=== PATIENT | female | born 1980 | race Caucasian/White ===

== ENCOUNTER 2022-05-08 09:33 | Day surgery (SDC) | payer OTHER, MEDICARE, SELFPAY ==
[2022-05-08] VITALS (15 sets, daily range): BP systolic 109–132; BP diastolic 72–85; PULSE 95–120; RESP 14–20; TEMP 36.1–36.6; O2SAT 96–100; BMI 42.0
--- NOTE | ~2022-05-08 | FL_ITS ---
EXAMINATION: XR FL WITH IMAGES CLINICAL INFORMATION: Perm-A-Cath. COMPARISON: None TECHNIQUE: Fluoroscopy performed by Soco Boogie MD. Fluoroscopy Time: 0 minutes. Cumulative Dose: 2.4 mGy. DAP: 0.7 Gycm2. Images: 3. FINDINGS: There is a right jugular Perm-A-Cath with tip projecting over the cavoatrial junction. FL/FL guidance in OR IMPRESSION: Fluoroscopic guidance for Perm-A-Cath placement.
[2022-05-08 10:02] LABS: UPreg QC Valid YES; Urine Pregnancy NEGATIVE (NEGATIVE)
[2022-05-08] MEDS: 0.9 % Sodium Chloride 1,000 ML 50 ML IVCONT (10:10)
[2022-05-08 10:18] LABS: Anion Gap 22 (12-20); Carbon Dioxide 26 mmol/L (22-29); Chloride 95 mmol/L (96-108); Potassium 4.2 mmol/L (3.3-5.1); Sodium 139 mmol/L (135-145)
--- NOTE | 2022-05-08 10:30 | P.CONAN_ITS ---
HPI - Anesthesia Eval Consult details Narrative: 41 yo female patient for laparoscopic insertion of Peritoneal dialysis catheter and replacement of tunneled HD catheter PMFSH Active Problems Active Problems: Last dialysis 05/05/22. No treatment Thursday05/06/22 secondary to port bleeding Morbid obesity BMI 42.1 Bilateral feet neuropathy. On gabapentin Hypothyroidism Occasional low BP. On midodrine prn On prophylactic anti viral, antibiotics for depressed immune system Asthma-controlled, does not use inhalers Past Medical History Medical History (Updated 05/08/22 @ 10:39 by Jenna Parmar MD) Anemia Asthma Chronic renal insufficiency GERD (gastroesophageal reflux disease) Gout Hemodialysis patient High cholesterol HTN (hypertension) Hypokalemia Hypomagnesemia Polycystic kidney disease Renal failure Renal vein thrombosis of kidney transplant Family History Family history of problems with anesthesia: No Surgical History Surgical History (Updated 05/08/22 @ 10:16 by Jane Grant RN) H/O knee surgery History of appendectomy History of cholecystectomy History of colon resection Transplant [place] teeth extracted History of Problems with Anesthesia: No Social History Social History Patient Tobacco Use Status: Never used Tobacco Are you DNR?: No Advance Directives: No Advance Directives Information Provided: Yes Recently lost weight without trying: No Nutrition Risks: No Nutritional Risk Patient : No FDLMP: 2 weeks ago Meds Allergies Allergy/AdvReac Type Severity Reaction Status Date / Time aspirin Allergy Intermediate Rash Verified 05/08/22 11:05 cephalexin [Keflex] Allergy Intermediate rash Verified 05/08/22 11:05 Active Medications: Current Medications Sodium Chloride (Ns) 1,000 mls @ 50 mls/hr IVCONT .Q20H ARPIT Last Admin: 05/08/22 10:10 Dose: 50 mls/hr Home Medications Medication Instructions Recorded Confirmed Last Taken Type B comp 3-folic acid 1 mg-C 60 1 tab PO DAILY 05/08/22 05/08/22 05/07/22 History mg-biotin 300 mcg-zinc ox 12.5 mg tablet calcitriol 0.25 mcg capsule 0.25 mcg PO 3XW 05/08/22 05/08/22 Unknown History calcium 500 mg tablet 1 mg PO TID 05/08/22 05/08/22 Unknown History calcium carbonate 500 mg calcium 1 mg PO BID 05/08/22 05/08/22 Unknown History (1,250 mg) tablet cetirizine 10 mg capsule (Zyrtec) 1 mg PO DAILY 05/08/22 05/08/22 Unknown History cholecalciferol (vitamin D3) 250 1 mcg PO DAILY 05/08/22 05/08/22 Unknown History mcg (10,000 unit) capsule ferrous sulfate 325 mg (65 mg 325 mg PO TID 05/08/22 05/08/22 Unknown History iron) tablet fluticasone propionate 50 1 spray intranasal BID 05/08/22 05/08/22 Unknown History mcg/actuation nasal spray,suspension furosemide 80 mg tablet (Lasix) 1 mg PO DAILY 05/08/22 05/08/22 Unknown History gabapentin 100 mg capsule 100 mg PO BID 05/08/22 05/08/22 05/08/22 History levothyroxine 125 mcg tablet 125 mcg PO DAILY 05/08/22 05/08/22 Unknown History loratadine 10 mg tablet (Claritin) 10 mg PO DAILY 05/08/22 05/08/22 05/08/22 History magnesium 1 tab PO DAILY 05/08/22 05/08/22 Unknown History midodrine 10 mg tablet 10 mg PO TID PRN Blood Pressure 05/08/22 05/08/22 Unknown History multivitamin 1 tab PO DAILY 05/08/22 05/08/22 Unknown History omeprazole 20 mg capsule,delayed 20 mg PO DAILY 05/08/22 05/08/22 05/08/22 History release ondansetron HCl 4 mg tablet 4 mg PO Q6H 05/08/22 05/08/22 Unknown History potassium 20 mg chewable tablet 1 mg PO DAILY 05/08/22 05/08/22 Unknown History sevelamer carbonate 800 mg tablet 800 mg PO TID 05/08/22 05/08/22 Unknown History (Renvela) simvastatin 40 mg tablet 40 mg PO DAILY 05/08/22 05/08/22 05/08/22 History sulfamethoxazole 400 1 tab PO Q OTHER DAY 05/08/22 05/08/22 05/06/22 History mg-trimethoprim 80 mg tablet (Bactrim) tramadol 50 mg tablet 1 mg PO BID PRN Pain 05/08/22 05/08/22 Unknown History valganciclovir 450 mg tablet 1 tab PO Q OTHER DAY 05/08/22 05/08/22 05/06/22 History Exam Exam Date and Time: May 08, 2022 1030 Height,Weight and Vital Signs: Height 5 ft 9 in Weight 129.274 kg Last Vital Signs Temp 98 F 05/08/22 09:45 Pulse 120 H 05/08/22 09:45 Resp 18 05/08/22 09:45 BP 132/85 05/08/22 09:45 Pulse Ox 98 05/08/22 09:45 O2 Del Method 05/08/22 09:45 Pertinent Lab Results Pertinent Lab Results: Laboratory Tests 05/08/22 05/08/22 09:42 09:53 Sodium 139 Potassium 4.2 Chloride 95 L Carbon Dioxide 26 Anion Gap 22 H Urine Test NEGATIVE Lab Results 05/08/22 05/08/22 Range/Units 09:42 09:53 Sodium 139 (135-145) mmol/L Potassium 4.2 (3.3-5.1) mmol/L Chloride 95 L (96-108) mmol/L Carbon Dioxide 26 (22-29) mmol/L Anion Gap 22 H (12-20) BUN 43 H (9-16) mg/dL Creatinine 9.53 H* (0.5-1.4) mg/dL Estim Creat Clear Calc 11.0 Estimated GFR 4 Urine Test NEGATIVE (NEGATIVE) Narrative Narrative: 05/08/22: 12 lead EKG- ST.102. LAD. Inferior infarct, age undetermined. Possible anterolateral infarct, age undetermined. No previous EKG available for comparison but patient had EKG at [facility] [place] pre-op transplant. Denies h/o CP. EKG requested from [facility], [place]. Only report sent-EKG 03/15/22: NSR.95. LAD. When c/w EKG of 03/13/22, NS T wave abnormality no longer evident in anterior leads 03/21/22 TTE: LV size is normal. LV wall thickness is normal. LV systolic function is normal. EF 55-60%. RV size and function appear grossly normal. Will proceed with surgery. Airway Mallampati Class: II TM Dist: >3cm Neck ROM: Full Loose/Missing/Broken Teeth: No ([place] bottom Right back- intact. No broken or loose teeth per patient ) Heart: RRR Lungs: CTAB Assessment and Plan Assessment Anesthesia Assessment: Anesthesia Plan Discussed and Chart Reviewed Final Anesthetic Review Family History of Problems with Anesthesia: No History of Problems with Anesthesia: No NPO: Yes ASA Class: III Final Preanesthetic Review: No Changes in Pt Med Stat, Meds/Allgs Chart Revi ewed, Consent Obtained/Reviewed and Anes Risks/Benef Reviewed Patient Risk: Intermediate Procedure Risk: Intermediate Assessment/Block/Sedation in SS: Assess/Block/Sedation-SS Anesthetic Plan Anesthetic Plan: GA Disposition: Standard PACU
--- NOTE | 2022-05-08 10:42 | ECG_ITS ---
Test Reason : RHYTHM CHANGE Blood Pressure : / mmHG Vent. Rate : 102 BPM Atrial Rate : 102 BPM P-R Int : 138 ms QRS Dur : 088 ms QT Int : 374 ms P-R-T Axes : 023 -41 008 degrees QTc Int : 487 ms Sinus tachycardia Left axis deviation Inferior infarct , age undetermined Possible Anterolateral infarct , age undetermined Abnormal ECG No previous ECGs available Referred By: Jenna Parmar Electronically Signed By:ERIC ARZOLA
[2022-05-08 11:24] LABS: Blood Urea Nitrogen 43 mg/dL (9-16); Estimated Glomerular Filt Rate 4
--- NOTE | 2022-05-08 14:36 | W.PM.OPN ---
Operative Note Operative Note Date of Service: 05/08/22 Narrative: Preop Diagnosis: ESRD Postop Diagnosis: ESRD Operation: 1. Laparoscopic insertion of peritoneal dialysis catheter 2. Laparoscopic lysis of adhesions 3. Laparoscopic omentopexy 4. Replacement of tunneled hemodialysis catheter (same site) Surgeon: Soco Boogie Anesthesia: General EBL: 50cc Procedure: The patient was placed on the OR table in a supine position, with both arms abducted on padded arm boards. Lower extremity compression devices were placed. After successful induction of general endotrachial anesthesia, the patient was prepped and draped in a sterile fashion. The anesthesiologist administered the pre-operative antibiotic and placed an OG tube to suction. Local anesthesia was used before making skin incisions. Using a #11 scalpel, a 5mm incision was made in the LUQ of the abdomen, mid-clavicular line. A Veress needle was placed. The abdomen was insufflated to a pressure of 14 mmHg. A 5mm Optiview trochar was inserted through the same incision using direct visualization. Subsequently, 5mm trochars were placed in the LLQ and RUQ, under direct visualization. Adhesions in the midline of the abdomen were lysed with laparoscopic latesha and electrocautery. A 10mm incision was made left lateral and superior to the umbilicus. An 8mm trochar was inserted at an angle and entered the abdomen in the midline, a few centimeters above the bladder. The PD catheter was inserted through this trochar. The end of the catheter was placed behind the bladder and the internal cuff was situated in the pre-peritoneal space. The other end of the catheter was tunneled left lateral to the 10mm incision and exited through a stab incision. The catheter was flushed with antibiotic saline and heparin-saline. It drained easily. The catheter was pexied internally to the abdominal wall using a suture passer and 2-0 silk tie. The omentum was pexied in the LUQ of the abdomen using a 2-0 silk tie and suture passer. Hemostasis was maintained. The abdomen was relieved of CO2 gas. The trochars were removed. The incisions were closed with 3-0 Vicryl subdermal stitches and 4-0 Monocryl subcuticular stitches. Surgical glue was applied. The catheter was dressed. I then turned my attention to the [facility] Permcath. It was prepped and draped in a sterile fashion. The catheter did not flush well. Local anesthetic was used. An incision was made at the base of the neck, through the prior incision. The catheter was dissected out, clamped and divided with a scissors. A wire was inserted through the catheter, towards the heart. The wire placement was confirmed with fluoroscopy. The remainder of the catheter was removed. A new catheter was inserted and tunneled through a new stab incision. The vein was dilated and a dilator/peelable sheath was placed. The catheter tip was inserted through the peelable sheath and the peelable sheath was removed. The catheter flushed well with hep-saline. It was sutured in place after the tip was confirmed in the right atrium, using fluoroscopy. The incision was closed with absorbable stitches. An appropriate dressing was placed. All instrument, sponge and needle counts were correct at the end of the case.
[2022-05-08] MEDS: fentaNYL citrate/PF 100 MCG/2 ML VIAL 25 MCG IVPUSH ×2 (14:47→15:00)
[2022-05-08] MEDS: oxyCODONE HCl Immed Release 5 MG TABLET PO (14:47)
== END 2022-05-08 17:20 | disposition home or self-care (01) ==
PROVIDERS: Nurse Practitioner; PCP Family Medicine; Visit Provider Transplant Surgery
PROC: (CPT 49324; principal; 2022-05-08 12:10)
PROC: (CPT 49324; 2022-05-08 12:10)
DX: I12.0 Hypertensive chronic kidney disease with stage 5 chronic kidney disease or end stage renal disease (principal); N18.6 End stage renal disease; Z99.2 Dependence on renal dialysis; T86.12 Kidney transplant failure; I82.3 Embolism and thrombosis of renal vein; Q61.2 Polycystic kidney, adult type; D64.9 Anemia, unspecified; E87.6 Hypokalemia; J45.909 Unspecified asthma, uncomplicated; Z79.51 Long term (current) use of inhaled steroids; Z79.899 Other long term (current) drug therapy; Z88.1 Allergy status to other antibiotic agents; Z88.8 Allergy status to other drugs, medicaments and biological substances
CPT/HCPCS: 49324; 49326; 36581; 36415; 80051; 81025; 82565; 84520; 93005; C1750; C1752; J0131; J0690; J1100; J2250; J2370; J2405; J2795; J3010; J3370